=== PATIENT | male | born 1930 | race Two or more races ===

== ENCOUNTER → 2017-03-22 | Outpatient (REF) | payer MEDICARE | LOC: M SFHCLERA 11:44 | PROVIDERS: ATTEND Dermatology | DX: C44.222 Squamous cell carcinoma of skin of right ear and external auricular canal (principal) | CPT/HCPCS: 11100; 88305; G0463 ==

== ENCOUNTER → 2017-04-08 | Outpatient (REF) | payer MEDICARE | LOC: M LAB REF 11:41 | PROVIDERS: ATTEND Dermatology | DX: C44.222 Squamous cell carcinoma of skin of right ear and external auricular canal (principal); C44.42 Squamous cell carcinoma of skin of scalp and neck ==

== ENCOUNTER → 2019-05-02 | Outpatient (REF) | payer MEDICARE | LOC: M LAB REF 16:20 | PROVIDERS: ATTEND Surgery | DX: C44.42 Squamous cell carcinoma of skin of scalp and neck (principal) ==

== ENCOUNTER → 2020-03-20 | Outpatient (REF) | payer MEDICARE | LOC: M LAB REF 17:28 | PROVIDERS: ATTEND Dermatology | DX: L90.5 Scar conditions and fibrosis of skin (principal) ==